=== PATIENT | female | born 1950 | race Caucasian/White ===

== ENCOUNTER 2025-03-15 07:38 | Day surgery (SDC) | payer MEDICARE, BC ==
[2025-03-15] MEDS ORDERED: Propofol 200 MG/20 ML SDV IV ONE (07:39)
[2025-03-15] MEDS ORDERED: Sodium Chloride 0.9% 10 ML Syringe FLUSH PRN (07:45)
[2025-03-15] MEDS: Lactated Ringers 1,000 ML IV SCH (08:58)
== END 2025-03-15 12:30 | disposition home or self-care (01) ==
LOC: FB.SDS 07:38
PROVIDERS: ATTEND Surgery
DX: Z12.11 Encounter for screening for malignant neoplasm of colon (principal); D12.8 Benign neoplasm of rectum; D12.6 Benign neoplasm of colon, unspecified; K63.5 Polyp of colon; N18.9 Chronic kidney disease, unspecified; Z80.0 Family history of malignant neoplasm of digestive organs; Z88.1 Allergy status to other antibiotic agents; Z88.8 Allergy status to other drugs, medicaments and biological substances; Z79.82 Long term (current) use of aspirin; Z91.018 Allergy to other foods
CPT/HCPCS: 00811; 45381; 45384; 45385; 88305; 99100; A9270; J2704; J7120